=== PATIENT | female | born 1965 | race Two or more races ===

== ENCOUNTER → 2018-07-22 | Emergency (ER) | payer MEDICAID ==
[~2018-07-22] VITALS: Ht 152.4 cm; Wt 59.0 kg
[~2018-07-22] MED LIST: CARBAMAZEPINE200 MG ORAL; Ketorolac 30mg Inj IM ONE; NAPROXEN500 M2 ORAL
[2018-07-22 15:01] VITALS: BP 116/71
--- NOTE | 2018-07-22 15:23 | Emergency Room Report ---
History of Present Illness General Chief Complaint: Pain Source: Patient Present Illness HPI 52-year-old with history of tendinitis right shoulder exacerbation of right shoulder pain the past 6 months. 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 Denies pain radiation, numbness, tingling rating the pain intermittent and 5 out of 10. Sensation over -the-counter ibuprofen with minimal relief. Eyes any recent injury or trauma. Denies chest pain, shortness of breath, vision, no other associated symptoms Allergies: Coded Allergies: No Known Allergies (Unverified , 07/22/18) Patient History Past Medical History: see triage record Past Surgical History: unable to obtain Last Menstrual Period: 06/2018 Now: No Immunizations: UTD Reviewed Nursing Documentation: PMH: Agreed; PSxH: Agreed Nursing Documentation-PMH Past Medical History: No Stated History Hx Neurological Problems: Yes - Ma ashli Review of Systems All Other Systems: negative except mentioned in HPI Physical Exam Vital Signs Date Time Temp Pulse Resp B/P (MAP) Pulse Ox O2 Delivery O2 Flow Rate FiO2 07/22/18 14:41 97.9 83 12 116/71 97 Room Air Sp02 EP Interpretation: reviewed, normal General Appearance: normal inspection, well appearing, no apparent distress, alert, GCS 15 Head: normocephalic, atraumatic Eyes: bilateral eye normal inspection, bilateral eye PERRL ENT: normal ENT inspection, hearing grossly normal, normal pharynx, no angioedema Neck: normal inspection, full range of motion, supple, thyroid normal Respiratory: normal inspection, lungs clear, no rhonchi, no retraction, no wheezing Cardiovascular #1: normal inspection, regular rate, rhythm, no gallop, no murmur Cardiovascular #2: 2+ radial (R), 2+ radial (L) Gastrointestinal: normal inspection, non tender, soft Rectal: deferred Genitourinary: deferred Musculoskeletal: non-tender, swelling - right shoulder Neurologic: normal inspection, alert, oriented x3, responsive Psychiatric: normal inspection, judgement/insight normal Skin: normal inspection, normal color, no rash, warm/dry, palpation normal, well hydrated Lymphatic: normal inspection, no adenopathy, axilla node tender (R) Medical Decision Making PA Attestation diagnosis and treatment reviewed and discussed with my supervising physician Dr. bennett Diagnostic Impression: Primary Impression: Bursitis of right shoulder Additional Impression: Tendonitis of shoulder, right ER Course 52-year-old with history of tendinitis right shoulder exacerbation of right shoulder pain the past 6 months. 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 Denies pain radiation, numbness, tingling rating the pain intermittent and 5 out of 10. Sensation over -the-counter ibuprofen with minimal relief. Eyes any recent injury or trauma. Denies chest pain, shortness of breath, vision, no other associated symptoms Ddx considered but are not limited to bursitis, tendonitis, fx of right shoulder , neuropathy Vital signs: are WNL, pt. is afebrile H&PE are most consistent with tendonitis and bursitis right shoulder ORDERS: toradol 30mg IM, naproxen 500mg ED INTERVENTIONS: None required at this time. DISCHARGE: At this time pt. is stable for d/c to home. Will provide printed patient care instructions, and any necessary prescriptions. Care plan and follow up instructions have been discussed with the patient prior to discharge. Last Vital Signs Date Time Temp Pulse Resp B/P (MAP) Pulse Ox O2 Delivery O2 Flow Rate FiO2 07/22/18 15:01 97.9 84 12 116/71 97 Room Air Disposition: HOME, SELF-CARE Condition: Stable Scripts Naproxen* (NAPROXEN*) 500 Mg Tablet 500 MG ORAL TWICE A DAY, #30 TAB Prov: Essence Soni 07/22/18 Patient Instructions: Bicipital Tendonitis, Bursitis, [id number] Additional Instructions: follow up with primary care provider and request MRI avoid strenuous physical activity take medication as direct that physical therapy advised Essence Soni Jul 22, 2018 15:23
[2018-07-22 15:40] VITALS: BP 112/78
== END | disposition home or self-care (01) ==
LOC: EMR 15:29
DX: M75.51 Bursitis of right shoulder (principal); M75.91 Shoulder lesion, unspecified, right shoulder
CPT/HCPCS: 96372; 99283; J1885